=== PATIENT | male | born 1955 | race Caucasian/White ===

== ENCOUNTER 2023-07-05 05:28 | Inpatient (IN) | payer MEDICARE, MEDICAID ==
[~2023-07-05] VITALS: Ht 175.3 cm; Wt 65.0 kg
[2023-07-05 07:24] LABS: Chloride 108 mmol/L (98-107); Potassium 4.4 mmol/L (3.5-5.1); Sodium 141 mmol/L (136-145)
[2023-07-05 07:25] LABS: Anion Gap 8 (5-15); Basophils # (auto) 0 10 ^3/uL (0-0.2); Basophils % (auto) 0.6 % (0.0-2.0); Calcium 9.7 mg/dL (8.5-10.1); Carbon Dioxide 25 mmol/L (20-30); Eosinophils # (auto) 0.3 10 ^3/uL (0-0.8); Eosinophils % (auto) 5.6 % (0.0-7.0); Hematocrit 39.7 % (41.0-53.0); Hemoglobin 12.7 g/dL (13.5-17.5); Lymphocytes # (auto) 2.6 10 ^3/uL (0.4-5.4); Lymphocytes % (auto) 48.8 % (10.0-50.0); Mean Corpuscular Hemoglobin 31.6 pg (28.0-32.0); Mean Corpuscular Hgb Conc. 31.9 g/dL (32.0-36.0); Monocytes # (auto) 0.4 10 ^3/uL (0-1.3); Monocytes % (auto) 7.3 % (0.0-12.0); Neutrophils % (auto) 37.7 % (37.0-80.0); Nucleated Red Blood Cells % 0.2 %; Red Blood Cells 4.02 10^6/uL (4.5-5.90); Red Cell Distribution Width 15.4 % (11.8-14.3); White Blood Cell 5.3 10^3/uL (4.4-10.8)
[2023-07-05 07:30] LABS: BUN/Creatinine Ratio 14.1 (10.0-20.0); Blood Alcohol < 3.0 mg/dL (<10); Blood Urea Nitrogen 25 mg/dL (9-23); Glucose 78 mg/dL (74-106)
[2023-07-05] MEDS ORDERED: ARIP1TAB61 PO (08:18)
[2023-07-05] MEDS ORDERED: ALLO300T2 PO (08:18)
[2023-07-05] MEDS ORDERED: ATOR20TA50 PO (08:18)
[2023-07-05] MEDS ORDERED: FUR20T PO (08:18)
[2023-07-05] MEDS ORDERED: OMEP1CAP70 PO (08:18)
[2023-07-05] MEDS ORDERED: CARB25TA77 PO (08:18)
[2023-07-05] MEDS ORDERED: RASA1TAB4 PO (08:18)
[2023-07-05] MEDS ORDERED: LOSA-535 PO (08:18)
[2023-07-05] MEDS ORDERED: [UNRECOGNIZED DRUG - CODE] PO (08:18)
[2023-07-05] MEDS: FUROSEMIDE 40 MG/4 ML VIAL IV ONE (09:35)
[2023-07-05] MEDS: cloNIDine HCL 0.1 MG TAB PO ONE (10:08)
[2023-07-05 11:53] LABS: Platelet Estimate Decreased
[2023-07-05 13:59] LABS: INR 1.03 (0.9-1.15); Prothrombin Time 10.9 sec (9.3-11.8)
[2023-07-05] MEDS: FUROSEMIDE 40 MG/4 ML VIAL IV SCH (19:56)
[2023-07-05] MEDS: CARBIDOPA W LEVODOPA CR 25/100mg TABLET PO SCH (20:02)
[2023-07-05] MEDS: AMANTADINE HCL 100 MG CAP PO SCH (22:29)
[2023-07-05] MEDS: hydrALAZINE HCL 20 MG/ML VL IV PRN (22:47)
[2023-07-06 08:35] VITALS: PULSE 101; RESP 14; O2SAT 95
[2023-07-06 09:12] VITALS: BP 163/90; PULSE 97; RESP 17; TEMP 98.7; O2SAT 99
[2023-07-06] MEDS: RASAGILINE MESYLATE 1 MG PO SCH (10:00)
[2023-07-06 10:07] VITALS: BP 160/92; PULSE 106; RESP 20; TEMP 98.7; O2SAT 98
[2023-07-06] MEDS ORDERED: INSU70IN3 SC (10:29)
[2023-07-06] MEDS ORDERED: INSLANTI SC (10:29)
[2023-07-06 10:45] VITALS: BP 163/90; PULSE 97; RESP 17; TEMP 98.7; O2SAT 99
[2023-07-06] MEDS: ATORVASTATIN 20 MG TAB PO SCH (11:07)
[2023-07-06] MEDS: PANTOPRAZOLE 40 MG TAB PO SCH (11:07)
[2023-07-06] MEDS: LOSARTAN POTASSIUM 50 MG TAB PO SCH (11:07)
[2023-07-06] MEDS ORDERED: DIVA-93 PO (11:14)
[2023-07-06] MEDS ORDERED: GABA-1250 PO (11:14)
[2023-07-06] MEDS: ALLOPURINOL 100 MG TAB PO SCH (11:28)
[2023-07-06 20:00] VITALS: PULSE 103; RESP 18; O2SAT 96
[2023-07-06] MEDS ORDERED: DEXTROSE (50%) 50ML SYRG IV PRN (20:45)
[2023-07-06 21:01] VITALS: BP 140/81; PULSE 89; RESP 18; TEMP 98.6; O2SAT 96
[2023-07-06] MEDS: ACCU-CHEK COMFORT CURVE STRIP VI SCH (22:03)
[2023-07-06] MEDS: InsuLIN REG 1unit/0.01ml Soln (100units/ml) SC SCH (22:03)
[2023-07-07 00:59] VITALS: BP 153/80; PULSE 103; RESP 17; TEMP 98.4; O2SAT 97
[2023-07-07 04:52] VITALS: BP 166/95; PULSE 101; RESP 18; TEMP 98.6; O2SAT 91
[2023-07-07] MEDS: InsuLIN REG 1unit/0.01ml Soln (100units/ml) SC SCH (06:53)
[2023-07-07 08:00] VITALS: PULSE 116
[2023-07-07 09:00] VITALS: BP 121/71; PULSE 121; RESP 71; TEMP 98.2; O2SAT 94
== END 2023-07-07 18:45 | DRG 291 ==
LOC: ER 05:28 → EDBD 05:28 → TELE 12:14 → TELE-E-ADS 07-06 09:12 → TELE-WESTW 07-06 17:40
PROVIDERS: ADMIT Nurse Practitioner Family; ATTEND Family Medicine
PROC: 5A12012 Performance of Cardiac Output, Single, Manual (ICD-10-PCS; principal; 2023-07-07)
PROC: 06HY33Z Insertion of Infusion Device into Lower Vein, Percutaneous Approach (ICD-10-PCS; 2023-07-07)
PROC: B54CZZA Ultrasonography of Left Lower Extremity Veins, Guidance (ICD-10-PCS; 2023-07-07)
PROC: 0BH17EZ Insertion of Endotracheal Airway into Trachea, Via Natural or Artificial Opening (ICD-10-PCS; 2023-07-07)
DX: I13.0 Hypertensive heart and chronic kidney disease with heart failure and stage 1 through stage 4 chronic kidney disease, or unspecified chronic kidney disease (principal); I50.43 Acute on chronic combined systolic (congestive) and diastolic (congestive) heart failure; J96.00 Acute respiratory failure, unspecified whether with hypoxia or hypercapnia; I16.1 Hypertensive emergency; I47.20 Ventricular tachycardia, unspecified; N17.9 Acute kidney failure, unspecified; F20.9 Schizophrenia, unspecified; F31.9 Bipolar disorder, unspecified; E11.22 Type 2 diabetes mellitus with diabetic chronic kidney disease; N18.9 Chronic kidney disease, unspecified; D69.6 Thrombocytopenia, unspecified; E78.00 Pure hypercholesterolemia, unspecified; F41.9 Anxiety disorder, unspecified; I46.9 Cardiac arrest, cause unspecified
CPT/HCPCS: 36415; 71045; 80048; 80320; 82962; 83880; 84484; 85025; 85384; 85610; 92950; 93306; 93970; 96374; 96375; G0378; J1815

== ENCOUNTER 2023-07-07 18:45 | Inpatient (IN) | payer OTHER ==
[~2023-07-07 18:45] MED LIST: ALLO300T2 PO; ARIP1TAB61 PO; ATOR20TA50 PO; CARB25TA77 PO; DIVA-93 PO; FUR20T PO; GABA-1250 PO; INSLANTI SC; INSU70IN3 SC; LOSA-535 PO; OMEP1CAP70 PO; RASA1TAB4 PO; [UNRECOGNIZED DRUG - CODE] PO
== END 2023-07-08 00:15 | DRG 310 ==
LOC: TELE 18:45
PROVIDERS: ADMIT Family Medicine; ATTEND Family Medicine
DX: I47.20 Ventricular tachycardia, unspecified (principal); M54.9 Dorsalgia, unspecified; F41.9 Anxiety disorder, unspecified; F20.9 Schizophrenia, unspecified; I11.0 Hypertensive heart disease with heart failure; I50.9 Heart failure, unspecified; E11.9 Type 2 diabetes mellitus without complications; E78.00 Pure hypercholesterolemia, unspecified; F31.9 Bipolar disorder, unspecified; I46.9 Cardiac arrest, cause unspecified
CPT/HCPCS: G0378